=== PATIENT | male | born 1935 | race Caucasian/White ===

== ENCOUNTER 2018-03-12 13:21 | Emergency (ER) | payer MEDICARE, OTHER ==
[2018-03-12 13:40] VITALS: BP 156/82
--- NOTE | 2018-03-12 14:57 | EDM.PDOC ---
ED HPI GENERAL MEDICAL PROBLEM - General Chief Complaint: ENT Problem Stated Complaint: FB IN R EYE Time Seen by Provider: 03/12/18 13:38 Source of Information: Reports: Patient History Limitations: Reports: No Limitations - History of Present Illness INITIAL COMMENTS - FREE TEXT/NARRATIVE: This is an 82 y/o male that comes in today with with pain to his right eye. He states it started last night while shaving when he accidently got some shaving cream in his eye. He was able to rinse it out but feels like there is "something floating around in my eye" and is having burning pain to his eye, about 4/10 with tearing. He is using OTC eye drops with no relief. Right Eye Pain Score (Numeric/FACES): 3 - Related Data Allergies Allergy/AdvReac Type Severity Reaction Status Date / Time Sulfa (Sulfonamide Allergy Hives Verified 03/12/18 13:37 Antibiotics) Home Meds: Home Meds Ascorbic Acid [Vitamin C] 1,000 mg PO DAILY 12/03/15 [History] Atenolol [Tenormin] 50 mg PO DAILY 12/03/15 [History] Flaxseed 340 gm PO DAILY 12/03/15 [History] Lisinopril 10 mg PO DAILY 12/03/15 [History] Meclizine HCl [Antivert] 25 mg PO DAILY PRN 12/03/15 [History] Mupirocin Oint [Bactroban Oint] 22 gm TOP TID 12/03/15 [History] [place]-3 Fatty Acids [Fish Oil] 300 mg PO DAILY 12/03/15 [History] Potassium Chloride [Klor-Con M20] 20 meq PO DAILY 12/03/15 [History] Pregabalin [Lyrica] 50 mg PO BEDTIME 12/03/15 [History] Sertraline [Zoloft] 50 mg PO BEDTIME 12/03/15 [History] Simvastatin [Zocor] 20 mg PO DAILY 12/03/15 [History] Ubidecarenone [COQ-10] 30 mg PO DAILY 12/03/15 [History] glipiZIDE [Glucotrol XL] 2.5 mg PO BIDD 12/03/15 [History] Aspirin 325 mg PO BID #80 tablet 12/04/15 [Rx] Hydrocodone/Acetaminophen [[place] 5-325 Tablet] 1 - 2 each PO Q6H PRN #40 tablet 12/04/15 [Rx] Ketorolac Tromethamine [Acular] 5 ml OP Q6H PRN #1 drops 03/12/18 [Rx] Past Medical History HEENT History: Reports: Cataract, Hard of Hearing Cardiovascular History: Reports: High Cholesterol, Hypertension Other Gastrointestinal History: n/v with anesthesia Musculoskeletal History: Reports: Back Pain, Chronic, Gout Other Musculoskeletal History: bunions Neurological History: Reports: Other (See Below) Other Neuro History: dizziness Endocrine/Metabolic History: Reports: Diabetes, Type II - Past Surgical History HEENT Surgical History: Reports: Cataract Surgery, Tonsillectomy GI Surgical History: Reports: Cholecystectomy Musculoskeletal Surgical History: Reports: Arthroscopic Knee, Knee Replacement, Other (See Below) Other Musculoskeletal Surgeries/Procedures:: Lumbar fusion Social & Family History - Tobacco Use Smoking Status *Q: Former Smoker Years of Tobacco use: 40 Packs/Tins Daily: 1 Used Tobacco, but Quit: Yes Month/Year Tobacco Last Used: Second Hand Smoke Exposure: No - Caffeine Use Caffeine Use: Reports: Coffee, Soda - Recreational Drug Use Recreational Drug Use: No ED ROS ENT - Review of Systems Review Of Systems: ROS reveals no pertinent complaints other than HPI. ED EXAM, ENT - Physical Exam Exam: See Below Exam Limited By: No Limitations General Appearance: Alert, WD/WN, No Apparent Distress Eye Exam: Right Eye: Conjunctival Injection, Bilateral Eye: EOMI, PERRL Ears: Normal External Exam, Hearing Grossly Normal Mouth/Throat: Normal Inspection, Normal Gums, Normal Lips, Normal Oropharynx, Normal Teeth Respiratory/Chest: No Respiratory Distress, Lungs Clear, Normal Breath Sounds, No Accessory Muscle Use, Chest Non-Tender Cardiovascular: Normal Peripheral Pulses, Regular Rate, Rhythm, No Edema, No Gallop, No JVD, No Murmur, No Rub Neurological: Alert, Oriented, CN II-XII Intact, Normal Cognition, Normal Gait, Normal Reflexes, No Motor/Sensory Deficits Psychiatric: Normal Affect, Normal Mood Skin: Warm, Dry, Intact, Normal Color, No Rash Course - Vital Signs Last Recorded V/S: Last Vital Signs Temp 97.4 F 03/12/18 13:37 Pulse 57 L 03/12/18 13:37 Resp 18 03/12/18 13:37 BP 156/82 H 03/12/18 13:37 Pulse Ox 96 03/12/18 13:37 Departure - Departure Time of Disposition: 14:49 Disposition: Home, Self-Care 01 Condition: Fair Clinical Impression: Chemical exposure of eye - Discharge Information *PRESCRIPTION DRUG MONITORING PROGRAM REVIEWED*: Not Applicable *COPY OF PRESCRIPTION DRUG MONITORING REPORT IN PATIENT ABRIL: Not Applicable Prescriptions: Ketorolac Tromethamine [Acular] 5 ml OP Q6H PRN #1 drops PRN Reason: Pain Instructions: Chemical Conjunctivitis, Adult, [id number] Referrals: Chanda Padilla MD [Primary Care Provider] - Additional Instructions: You were seen today for chemical irritation to your eye. There were no signs of foreign body on exam and it would not make sense to find one with your history of shaving lotion getting into the eye. Continue to use OTC eye drops for relief. Will prescribe Acular for pain, 1 drop to the eye every 6 hours for pain as needed. You can follow up with your eye doctor if you feel necessary. Please return to ED if worsening of symptoms.
== END 2018-03-12 15:25 | disposition home or self-care (01) ==
LOC: JD.ED 13:21
DX: Z77.098 Contact with and (suspected) exposure to other hazardous, chiefly nonmedicinal, chemicals (principal); E78.00 Pure hypercholesterolemia, unspecified; I10 Essential (primary) hypertension; E11.9 Type 2 diabetes mellitus without complications; Z87.891 Personal history of nicotine dependence; Z88.2 Allergy status to sulfonamides; Z79.899 Other long term (current) drug therapy; Z79.84 Long term (current) use of oral hypoglycemic drugs
CPT/HCPCS: 99283

== ENCOUNTER 2020-04-18 10:22 | Emergency (ER) | payer MEDICARE, OTHER ==
--- NOTE | 2020-04-18 11:45 | EDM.PDOC ---
ED HPI GENERAL MEDICAL PROBLEM - General Chief Complaint: Cardiovascular Problem Stated Complaint: HEART RACING/DIZZINESS/HEADACHE Time Seen by Provider: 04/18/20 11:06 Source of Information: Reports: Patient, RN Notes Reviewed History Limitations: Reports: No Limitations - History of Present Illness INITIAL COMMENTS - FREE TEXT/NARRATIVE: Patient is an 84-year-old male presenting to the emergency department with complaints of intermittent throbbing/pounding in his head, palpitations, and elevated blood pressure. He states the symptoms have been going on for a number of days. Blood pressure at home this morning was in the 190s systolically. Normal blood pressure for him is 150s to 180s systolically. He denies pain to his head but states that he can feel his pulse in his head. He also has intermittent sensation of palpitations in his chest. States it feels like his heart is racing. He has had no chest pain, cough, shortness of breath, nausea, vomiting, or diarrhea. His primary care provider is Dr. Chanda Padilla. Head Pain Score (Numeric/FACES): 6 - Related Data Allergies Allergy/AdvReac Type Severity Reaction Status Date / Time Sulfa (Sulfonamide Allergy Hives Verified 04/18/20 12:01 Antibiotics) Home Meds: Home Meds Ascorbic Acid [Vitamin C] 2,000 mg PO DAILY 12/03/15 [History] Flaxseed 340 gm PO DAILY 12/03/15 [History] Lisinopril 10 mg PO DAILY 12/03/15 [History] Meclizine HCl [Antivert] 25 mg PO DAILY PRN 12/03/15 [History] Mupirocin Oint [Bactroban Oint] 22 gm TOP TID PRN 12/03/15 [History] [place]-3 Fatty Acids [Fish Oil] 300 mg PO DAILY 12/03/15 [History] Potassium Chloride [Klor-Con M20] 20 meq PO DAILY 12/03/15 [History] Pregabalin [Lyrica] 50 mg PO BEDTIME 12/03/15 [History] Sertraline [Zoloft] 50 mg PO BEDTIME 12/03/15 [History] Simvastatin [Zocor] 20 mg PO DAILY 12/03/15 [History] Ubidecarenone [COQ-10] 30 mg PO DAILY 12/03/15 [History] atenoloL [Tenormin] 50 mg PO DAILY 12/03/15 [History] glipiZIDE [Glucotrol XL] 2.5 mg PO BID 12/03/15 [History] Ketorolac Tromethamine [Acular] 5 ml OP Q6H PRN #1 drops 03/12/18 [Rx] Aspirin 81 mg PO DAILY 04/18/20 [History] Cholecalciferol (Vitamin D3) [Vitamin D3] 2,000 unit PO DAILY 04/18/20 [History] Montelukast [Singulair] 10 mg PO DAILY 04/18/20 [History] Pramipexole [Mirapex] 0.125 mg PO DAILY 04/18/20 [History] SitaGLIPtin [Januvia] 100 mg PO DAILY 04/18/20 [History] Tamsulosin HCl 0.4 mg PO DAILY 04/18/20 [History] Past Medical History HEENT History: Reports: Cataract, Hard of Hearing Cardiovascular History: Reports: High Cholesterol, Hypertension Other Gastrointestinal History: n/v with anesthesia Genitourinary History: Reports: Urinary Incontinence Musculoskeletal History: Reports: Back Pain, Chronic, Gout Other Musculoskeletal History: bunions Neurological History: Reports: Migraines, Other (See Below) Other Neuro History: dizziness Endocrine/Metabolic History: Reports: Diabetes, Type II - Infectious Disease History Infectious Disease History: Reports: Chicken Pox, Measles, Mumps - Past Surgical History HEENT Surgical History: Reports: Cataract Surgery, Tonsillectomy GI Surgical History: Reports: Cholecystectomy, Colonoscopy Musculoskeletal Surgical History: Reports: Arthroscopic Knee, Knee Replacement, Other (See Below) Other Musculoskeletal Surgeries/Procedures:: Lumbar fusion Social & Family History - Tobacco Use Tobacco Use Status *Q: Former Tobacco User Years of Tobacco use: 35 Packs/Tins Daily: 3 Used Tobacco, but Quit: Yes Month/Year Tobacco Last Used: jun 1969 - Caffeine Use Caffeine Use: Reports: Coffee - Alcohol Use Days Per Week of Alcohol Use: 2 Number of Drinks Per Day: 1 Total Drinks Per Week: 2 - Recreational Drug Use Recreational Drug Use: No ED ROS GENERAL - Review of Systems Review Of Systems: See Below Constitutional: Reports: No Symptoms. Denies: Fever, Chills, Weakness HEENT: Reports: No Symptoms Respiratory: Reports: No Symptoms. Denies: Shortness of Breath, Cough Cardiovascular: Reports: Blood Pressure Problem. Denies: Chest Pain, Syncope Endocrine: Reports: No Symptoms GI/Abdominal: Reports: No Symptoms : Reports: No Symptoms Musculoskeletal: Reports: No Symptoms Skin: Reports: No Symptoms Neurological: Reports: Headache (Pounding) Psychiatric: Reports: No Symptoms Hematologic/Lymphatic: Reports: No Symptoms Immunologic: Reports: No Symptoms ED EXAM, GENERAL - Physical Exam Exam: See Below Exam Limited By: No Limitations General Appearance: Alert, WD/WN, No Apparent Distress Respiratory/Chest: No Respiratory Distress, Lungs Clear, Normal Breath Sounds, No Accessory Muscle Use, Chest Non-Tender Cardiovascular: Normal Peripheral Pulses, Regular Rate, Rhythm, No Edema, No Gallop, No JVD, No Murmur, No Rub GI/Abdominal: Normal Bowel Sounds, Soft, Non-Tender, No Organomegaly, No D istention, No Abnormal Bruit, No Mass Neurological: Alert, Oriented, CN II-XII Intact, Normal Cognition, Normal Gait, Normal Reflexes, No Motor/Sensory Deficits Psychiatric: Normal Affect, Normal Mood Skin Exam: Warm, Dry, Intact, Normal Color, No Rash #1 Interpretation EKG Date: 04/18/20 Time: 10:30 Rhythm: NSR Rate (Beats/Min): 83 [place]: Normal P-Wave: Present QRS: Normal ST-T: Normal QT: Normal Course - Vital Signs Last Recorded V/S: Last Vital Signs Temp 97.9 F 04/18/20 13:40 Pulse 76 04/18/20 13:40 Resp 20 04/18/20 13:40 BP 171/80 H 04/18/20 13:40 Pulse Ox 96 04/18/20 13:40 - Orders/Labs/Meds Orders: Active Orders 24 hr Category Date Time Status Chest 1V Frontal [CR] Stat Exams 04/18/20 11:14 Taken Head wo Cont [CT] Stat Exams 04/18/20 11:18 Taken Labs: Laboratory Tests 04/18/20 04/18/20 04/18/20 Range/Units 11:23 11:23 11:23 WBC 5.59 (4.23-9.07) K/mm3 RBC 4.78 (4.63-6.08) M/mm3 Hgb 13.6 L (13.7-17.5) gm/dl Hct 42.3 (40.1-51.0) % MCV 88.5 (79.0-92.2) fl MCH 28.5 (25.7-32.2) pg MCHC 32.2 (32.2-35.5) g/dl RDW Std Deviation 41.5 (35.1-43.9) fL Plt Count 171 (163-337) K/mm3 MPV 10.1 (9.4-12.3) fl Neut % (Auto) 68.9 H (34.0-67.9) % Lymph % (Auto) 18.2 L (21.8-53.1) % [place] % (Auto) 10.7 (5.3-12.2) % Eos % (Auto) 1.6 (0.8-7.0) Baso % (Auto) 0.4 (0.1-1.2) % Neut # (Auto) 3.85 (1.78-5.38) K/mm3 Lymph # (Auto) 1.02 L (1.32-3.57) K/mm3 [place] # (Auto) 0.60 (0.30-0.82) K/mm3 Eos # (Auto) 0.09 (0.04-0.54) K/mm3 Baso # (Auto) 0.02 (0.01-0.08) K/mm3 Sodium 139 (136-145) mEq/L Potassium 4.4 (3.5-5.1) mEq/L Chloride 101 (98-107) mEq/L Carbon Dioxide 29 (21-32) mEq/L Anion Gap 13.4 (5-15) BUN 18 (7-18) mg/dL Creatinine 1.1 (0.7-1.3) mg/dL Est Cr Clr Drug Dosing 49.99 mL/min Estimated GFR (MDRD) > 60 (>60) mL/min BUN/Creatinine Ratio 16.4 (14-18) Glucose 182 H (83-115) mg/dL Calcium 10.2 H (8.5-10.1) mg/dL Total Bilirubin 0.5 (0.2-1.0) mg/dL AST 14 L (15-37) U/L ALT 32 (16-63) U/L Alkaline Phosphatase 96 (46-116) U/L Troponin I < 0.017 (0.00-0.056) ng/mL C-Reactive Protein 1.3 H* (<1.0) mg/dL NT-Pro-B Natriuret Pep 118 (0-450) pg/mL Total Protein 7.0 (6.4-8.2) g/dl Albumin 3.6 (3.4-5.0) g/dl Globulin 3.4 gm/dL Albumin/Globulin Ratio 1.1 (1-2) - Re-Assessments/Exams Free Text/Narrative Re-Assessment/Exam: Patient is an 84-year-old male presenting to the emergency department with a 3- day history of intermittent pounding in his head, palpitations, and elevated blood pressures.Blood pressure in triage was 171/82. States patient states that he was in the 190s systolically at home this morning. He does have some slight pounding in his head at this time. We will complete a cardiac work-up including CBC, CMP, CRP, troponin, chest x-ray, EKG. I will also order a CT scan of his head. 04/18/20 12:52 His work-up was grossly unremarkable. Troponin was negative. BNP was normal. EKG showed no acute ischemia. Head CT showed no acute abnormalities. Patient's blood pressure came down to 149/87 and he denies any pounding sensation in his head at this time. We will discharge him home with a 48-hour Holter monitor due to his complaints of palpitations. Recommend that he check his blood pressure intermittently throughout the day and keep a log. Follow-up with his primary care provider early next week to discuss a possible adjustment of his blood pressure medications as needed. Return to ER for new or worsening symptoms. Departure - Departure Time of Disposition: 12:55 Disposition: Home, Self-Care 01 Condition: Good Clinical Impression: Palpitations, Pounding in head Instructions: Palpitations, [id number] Referrals: Chanda Padilla MD [Primary Care Provider] - Forms: ED Department Discharge Additional Instructions: You were seen in the emergency department today for intermittent episodes of pounding in your head, palpitations, and high blood pressure at home. Your work-up in the ER included blood work, chest x-ray, and EKG of your heart, and a CT scan of your head. Your work-up was found to be normal. Blood pressure on arrival to ER was 171/82 and came down to 149/87 without treatment. No abnormal heart rhythms were visualized in the emergency department. You have been sent home on a 48-hour Holter monitor to monitor your cardiac rhythm. Follow the instructions as provided to you with regards to this as well as returning this. Recommend that you check your blood pressure a few times each day and keep a log of this. Follow-up with your primary care provider early next week to discuss your readings and the possibility of adjusting her blood pressure medications if needed. If you experience any new or worsening symptoms of concern, please do not hesitate to return to the emergency department. Sepsis Event Note (ED) - Evaluation Sepsis Screening Result: No Definite Risk - Focused Exam Vital Signs: Vital Signs Temp Pulse Resp BP Pulse Ox 04/18/20 13:40 97.9 F 76 20 171/80 H 96 04/18/20 10:25 97.8 F 84 18 171/82 H 96 - My Orders Last 24 Hours: My Active Orders 04/18/20 11:14 Chest 1V Frontal [CR] Stat 04/18/20 11:18 Head wo Cont [CT] Stat - Assessment/Plan Last 24 Hours: My Active Orders 04/18/20 11:14 Chest 1V Frontal [CR] Stat 04/18/20 11:18 Head wo Cont [CT] Stat
[2020-04-18 13:46] VITALS: BP 171/80; PULSE 76
== END 2020-04-18 13:45 | disposition home or self-care (01) ==
LOC: JD.ED 10:22
DX: R00.2 Palpitations (principal); E78.00 Pure hypercholesterolemia, unspecified; I10 Essential (primary) hypertension; E11.9 Type 2 diabetes mellitus without complications; Z79.82 Long term (current) use of aspirin; Z79.84 Long term (current) use of oral hypoglycemic drugs; Z88.2 Allergy status to sulfonamides; Z79.899 Other long term (current) drug therapy; Z87.891 Personal history of nicotine dependence
CPT/HCPCS: 36415; 70450; 71045; 80053; 83880; 84484; 85025; 86140; 93005; 93010; 99283; 99285-25

== ENCOUNTER 2021-07-10 18:14 | Inpatient (IN) | payer MEDICARE, OTHER ==
[2021-07-10] MEDS ORDERED: Lactated Ringers 1,000 ML IV ONE ×2 (19:09→21:30)
[2021-07-10] MEDS ORDERED: Acetaminophen 325 MG Tab PO ONE (19:31)
[2021-07-10 19:45] LABS: CORONAVIRUS COVID-19 NAA NEGATIVE (NEGATIVE)
[2021-07-11] MEDS ORDERED: Albuterol 0.083% 2.5 MG/3 ML Neb Soln NEB ONE (01:03)
[2021-07-11] MEDS ORDERED: Acetaminophen 325 MG Tab PO ONE ×2 (03:10→10:14)
[2021-07-11] MEDS ORDERED: Levofloxacin/Dextrose 5%-Water 750 MG in Premix Bag 1 BAG IV ONE (08:47)
[2021-07-11] MEDS ORDERED: Ondansetron 4 MG/2 ML SDV IV PRN (19:01)
[2021-07-11] MEDS ORDERED: Simvastatin 20 MG Tab PO ONE (19:57)
[2021-07-11] MEDS ORDERED: Pramipexole 0.25 MG Tab PO ONE (19:58)
[2021-07-11] MEDS ORDERED: Gabapentin 100 MG Cap PO ONE (19:59)
[2021-07-11] MEDS: cefTRIAXone 1 GM in Sodium Chloride 0.9% 100 ML IV SCH (20:22)
[2021-07-11] MEDS: Insulin Lispro 100 Unit/ML 3 ML KwikPen SUBCUT SCH (21:11)
[2021-07-12 07:23] LABS: HEMOGLOBIN A1C 6.9 %
[2021-07-12] MEDS: Insulin Lispro 100 Unit/ML 3 ML KwikPen SUBCUT SCH ×4 (08:25→21:11)
[2021-07-12] MEDS ORDERED: Magnesium Sulfate/Water 4 GM in Premix Bag 1 BAG IV ONE (08:36)
[2021-07-12] MEDS ORDERED: Enoxaparin 30 MG/0.3 ML Syringe SUBCUT SCH (09:00)
[2021-07-12] MEDS ORDERED: Albuterol/Ipratropium 3.0-0.5 MG/3 ML Neb Soln NEB PRN (13:28)
[2021-07-12] MEDS ORDERED: Ketorolac 0.5% Ophth Soln 5 ML Bottle EYERT PRN (15:12)
[2021-07-12] MEDS: Atenolol 50 MG Tab PO SCH (15:26)
[2021-07-12] MEDS: Lisinopril 10 MG Tab PO SCH (15:26)
[2021-07-12] MEDS: cefTRIAXone 1 GM in Sodium Chloride 0.9% 100 ML IV SCH (18:19)
[2021-07-12] MEDS: Acetaminophen 325 MG Tab PO PRN (19:21)
[2021-07-12] MEDS ORDERED: UBIDECARENONE 30 MG PO SCH (21:00)
[2021-07-12] MEDS ORDERED: Pramipexole 0.25 MG Tab PO SCH (21:00)
[2021-07-12] MEDS ORDERED: Gabapentin 100 MG Cap PO SCH (21:00)
[2021-07-12] MEDS ORDERED: Simvastatin 20 MG Tab PO SCH (21:00)
[2021-07-13] MEDS: Acetaminophen 325 MG Tab PO PRN (07:45)
[2021-07-13] MEDS: Lisinopril 10 MG Tab PO SCH (08:09)
[2021-07-13] MEDS: Atenolol 50 MG Tab PO SCH (08:15)
[2021-07-13] MEDS: Insulin Lispro 100 Unit/ML 3 ML KwikPen SUBCUT SCH ×2 (08:22→12:47)
[2021-07-13] MEDS ORDERED: Pramipexole 0.25 MG Tab PO SCH (09:00)
[2021-07-13] MEDS ORDERED: Cyanocobalamin (Vitamin B12) 1,000 MCG Tab PO SCH (09:00)
[2021-07-13] MEDS ORDERED: Tamsulosin 0.4 MG Cap.ER PO SCH (09:00)
[2021-07-13] MEDS ORDERED: Aspirin 81 MG Tab.EC PO SCH (09:00)
[2021-07-13] MEDS ORDERED: Potassium Chloride 20 MEQ Tab.ER PO SCH (09:00)
[2021-07-13] MEDS ORDERED: cefTRIAXone 1 GM in Sodium Chloride 0.9% 100 ML IV SCH (12:30)
[2021-07-13 12:39] VITALS: BP 164/69; PULSE 69
== END 2021-07-13 13:36 | disposition home or self-care (01) | DRG 690 ==
LOC: JD.ED 18:14 → JD.ICU 07-11 17:08
PROVIDERS: ADMIT Family Medicine; ATTEND Family Medicine
DX: N39.0 Urinary tract infection, site not specified (principal); R53.1 Weakness; I10 Essential (primary) hypertension; E78.5 Hyperlipidemia, unspecified; E11.51 Type 2 diabetes mellitus with diabetic peripheral angiopathy without gangrene; D69.6 Thrombocytopenia, unspecified; E11.9 Type 2 diabetes mellitus without complications; D64.9 Anemia, unspecified; N28.9 Disorder of kidney and ureter, unspecified; Z79.84 Long term (current) use of oral hypoglycemic drugs; E83.42 Hypomagnesemia; R74.01 Elevation of levels of liver transaminase levels; Z88.2 Allergy status to sulfonamides; Z79.899 Other long term (current) drug therapy; Z79.82 Long term (current) use of aspirin; H91.90 Unspecified hearing loss, unspecified ear; E78.00 Pure hypercholesterolemia, unspecified; R32 Unspecified urinary incontinence; Z87.440 Personal history of urinary (tract) infections; M10.9 Gout, unspecified; G89.29 Other chronic pain; M54.9 Dorsalgia, unspecified; G43.909 Migraine, unspecified, not intractable, without status migrainosus; Z90.89 Acquired absence of other organs; Z90.49 Acquired absence of other specified parts of digestive tract; Z96.659 Presence of unspecified artificial knee joint; Z98.1 Arthrodesis status; Z20.822 Contact with and (suspected) exposure to COVID-19
CPT/HCPCS: 0240U; 36415; 71045; 80048; 80053; 81001; 82947; 83036; 83605; 83690; 83735; 85025; 86140; 87641; 93005; 94640; 97161; 99285-25; A9270-GY; J0696; J1650; J1815; J1956; J3475; J7120; J7620-GY

== ENCOUNTER 2022-02-19 17:16 | Emergency (ER) | payer MEDICARE, OTHER ==
[2022-02-19 19:48] VITALS: BP 133/64; PULSE 81
[2022-02-19] MEDS ORDERED: Sodium Chloride 0.9% 10 ML Syringe FLUSH PRN (19:51)
[2022-02-19] MEDS ORDERED: Acetaminophen 325 MG Tab PO ONE (20:11)
[2022-02-19] MEDS ORDERED: methylPREDNISolone Sodium Succinate 125 MG/2 ML SDV IVPUSH PRN (20:51)
[2022-02-19] MEDS ORDERED: diphenhydrAMINE 50 MG/ML SDV IVPUSH PRN (20:51)
[2022-02-19] MEDS ORDERED: Famotidine 20 MG/2 ML SDV IVPUSH PRN (20:51)
[2022-02-19] MEDS ORDERED: EPINEPHrine 1 MG/ML SDV IM PRN (20:51)
[2022-02-19] MEDS ORDERED: Magnesium Oxide 400 MG Tab PO ONE (20:52)
[2022-02-19] MEDS ORDERED: Sodium Chloride 0.9% 10 ML Syringe FLUSH SCH (21:00)
== END 2022-02-19 22:56 | disposition home or self-care (01) ==
LOC: JD.ED 17:16
DX: U07.1 COVID-19 (principal); E78.00 Pure hypercholesterolemia, unspecified; I10 Essential (primary) hypertension; E11.9 Type 2 diabetes mellitus without complications; Z88.2 Allergy status to sulfonamides; Z79.899 Other long term (current) drug therapy; Z79.82 Long term (current) use of aspirin; Z87.891 Personal history of nicotine dependence
CPT/HCPCS: 36415; 80053; 81003; 83735; 85025; 86140; 99283; A9270; J3490; M0222; Q0222; U0002

== ENCOUNTER 2023-02-09 15:36 | Emergency (ER) | payer MEDICARE, OTHER ==
[2023-02-09 19:00] VITALS: BP 176/94; PULSE 63
[2023-02-09] MEDS ORDERED: Sodium Chloride 0.9% 100 ML ONE (20:37)
== END 2023-02-09 17:56 | disposition home or self-care (01) ==
LOC: JD.ED 15:36
DX: H81.10 Benign paroxysmal vertigo, unspecified ear (principal); E78.00 Pure hypercholesterolemia, unspecified; I10 Essential (primary) hypertension; E11.9 Type 2 diabetes mellitus without complications; E66.9 Obesity, unspecified; Z87.891 Personal history of nicotine dependence; Z79.82 Long term (current) use of aspirin; Z79.84 Long term (current) use of oral hypoglycemic drugs; Z79.899 Other long term (current) drug therapy; Z88.2 Allergy status to sulfonamides; Z68.33 Body mass index [BMI] 33.0-33.9, adult
CPT/HCPCS: 99282; 99283

== ENCOUNTER 2024-01-17 21:16 | Emergency (ER) | payer MEDICARE, OTHER ==
[2024-01-17] MEDS ORDERED: Sodium Chloride 0.9% 10 ML Syringe FLUSH PRN (21:50)
[2024-01-17] MEDS: Sodium Chloride 0.9% 500 ML IV ONE (21:58)
[2024-01-17] MEDS: Meclizine 25 MG Tab PO ONE (21:58)
[2024-01-17 22:10] LABS: BASOPHILS PERCENT AUTO 0.5 % (0.0-1.0); EOSINOPHILS ABSOLUTE AUTO 0.2 K/mm3 (0.0-0.4); EOSINOPHILS PERCENT AUTO 2.6 % (0.0-6.0); HEMATOCRIT 39.6 % (42.0-52.0); HEMOGLOBIN 13.1 gm/dl (14.0-18.0); IMMATURE GRAN ABSOLUTE AUTO 0.02 K/mm3 (0.00-0.05); IMMATURE GRAN PERCENT AUTO 0.4 % (0.0-0.4); LYMPHOCYTES ABSOLUTE AUTO 1.6 K/mm3 (1.0-4.8); LYMPHOCYTES PERCENT AUTO 27.7 % (24.0-44.0); MEAN CORPUSCULAR HEMOGLOBIN 29.9 pg (28.0-32.0); MEAN CORPUSCULAR HGB CONC 33.1 g/dl (32.0-36.0); MEAN CORPUSCULAR VOLUME 90.4 fl (83.0-99.0); MEAN PLATELET VOLUME 10.3 fl (9.4-12.4); MONOCYTES ABSOLUTE AUTO 0.6 K/mm3 (0.0-0.8); MONOCYTES PERCENT AUTO 11.3 % (0.0-8.0); NEUTROPHILS ABSOLUTE AUTO 3.3 K/mm3 (1.8-7.7); NEUTROPHILS PERCENT AUTO 57.5 % (41.0-71.0); PLATELET COUNT,PLT 157 K/mm3 (150-400); RED BLOOD CELL COUNT 4.38 M/mm3 (4.52-5.90); WHITE BLOOD CELL COUNT,WBC 5.67 K/mm3 (3.9-11.3)
[2024-01-17 22:19] LABS: A/G RATIO 1.2 (1-2); ALBUMIN 3.7 g/dl (3.4-5.0); ANION GAP 12.8 (5-15); BILIRUBIN TOTAL 0.5 mg/dL (0.2-1.0); BUN/CREATININE RATIO 18.2 (14-18); CALCIUM 9.4 mg/dL (8.5-10.1); CREATININE 1.7 mg/dL (0.7-1.3); EST CRCL DRUG DOSING (CG) 32.97 mL/min; MAGNESIUM 1.7 mg/dL (1.8-2.4); PROTEIN TOTAL,TP 6.9 g/dl (6.4-8.2)
[2024-01-17 22:24] LABS: POTASSIUM,K 4.8 mEq/L (3.5-5.1)
[2024-01-17] MEDS: Acetaminophen 325 MG Tab PO ONE (22:32)
[2024-01-17] MEDS: fentaNYL 100 MCG/2 ML SDV IVPUSH ONE (22:32)
[2024-01-17 23:39] LABS: APPEARANCE,URINE CLEAR (Clear); BILIRUBIN,URINE NEGATIVE (Negative); COLOR,URINE YELLOW (Yellow); GLUCOSE,URINE NEGATIVE (Negative); KETONES,URINE NEGATIVE (Negative); LEUKOCYTE ESTERASE,URINE NEGATIVE (Negative); NITRITE,URINE NEGATIVE (Negative); OCCULT BLOOD,URINE NEGATIVE (Negative); PROTEIN,URINE NEGATIVE (Negative); UROBILINOGEN,URINE 0.2 (0.2-1.0)
[2024-01-18 00:27] VITALS: BP 155/85; PULSE 60
== END 2024-01-18 00:33 | disposition home or self-care (01) ==
LOC: JD.ED 21:16
DX: R51.9 Headache, unspecified (principal); R42 Dizziness and giddiness; I10 Essential (primary) hypertension; E78.00 Pure hypercholesterolemia, unspecified; E11.9 Type 2 diabetes mellitus without complications; E66.9 Obesity, unspecified; Z90.49 Acquired absence of other specified parts of digestive tract; Z79.899 Other long term (current) drug therapy; Z88.2 Allergy status to sulfonamides
CPT/HCPCS: 36415; 70450; 80053; 81003; 83735; 85025; 93005; 96360; 99284; A9270; J7030